=== PATIENT | female | born 2000 | race Caucasian/White ===

== ENCOUNTER 2024-02-04 07:35 | Outpatient (CLI) | payer BC, SELFPAY ==
--- NOTE | ~2024-02-04 | US_ITS ---
EXAMINATION: US pelvic complete w TV INDICATION: Pelvic and perineal pain Comparison:No prior studies for comparison. TECHNIQUE: Multiple transabdominal and endovaginal sonographic images of the pelvis performed. FINDINGS: The uterus measures 6.7 x 3.4 x 2.4 cm. The endometrial complex measures 4 mm. The right ovary measures 2.4 x 1.7 x 1.5 cm and the left ovary measures 2.3 x 2.1 x 2 cm. There are small follicles in each ovary. Normal doppler signal in both ovaries. There is trace free fluid in the pelvis. There are no abnormal masses seen on either side. IMPRESSION: 1. Unremarkable pelvic ultrasound. Reviewed, dictated and finalized at location B.
== END 2024-02-04 07:36 | disposition home or self-care (01) ==
PROVIDERS: PCP Family Medicine; Visit Provider Family Medicine
DX: R10.2 Pelvic and perineal pain (principal)
CPT/HCPCS: 76830; 76856

== ENCOUNTER 2025-01-21 11:49 | Emergency (ER) | payer BC, SELFPAY ==
[2025-01-21 11:57] VITALS: BP 122/77; PULSE 102; RESP 18; TEMP 36.4; O2SAT 99
--- NOTE | 2025-01-21 12:22 | ED_ITS ---
HPI - Ear Problem General Chief complaint: Ear Stated complaint: Right Ear Pain Time Seen by Provider: 01/21/25 12:00 Source: patient Mode of arrival: ambulatory Limitations: no limitations History of Present Illness HPI Narrative: Melissa is a 24-year-old female patient presenting to the clinic today with complaints of right ear pain x2 days. She reports she was having some itching in the right ear and went to scratch it and noticed some blood coming out of her ear. States that now she is having some ear discomfort. Feels as though there is caught in stuck in her ear. No runny nose, cough, or congestion. Denies fevers, chills, body aches. No recent swimming. No drainage coming from the ear. Related Data Allergies Allergy/AdvReac Type Severity Reaction Status Date / Time No Known Allergies Allergy Verified 01/21/25 11:55 Review of Systems Review of Systems: Pertinent positives per HPI. Patient denies any fever, chills, rash, headache, visual changes, dizziness, cough, shortness of breath, chest pain, palpitations, nausea, vomiting, diarrhea, constipation, abdominal pain, or any urinary issues. PMFSH Past Medical History Medical History Anxiety Family History Family History Mother Patient's mother is in good health Father Patient's father is in good health Social History Social History Smoking status: Never smoker Second hand tobacco smoke exposure: No Alcohol intake: never Substance use: never Substance use type: does not use Lack of Transportation: No Lack of Food: Never True Current Housing: I Have Housing Concerned About Future Housing: No Difficulty Paying Gas/Electric Bills: No Difficulty Paying for Meds: No Currently Unemployed: No Education: Associate Degree Difficulty w/ Childcare or Family Care: No Comments At the time of my signature, I reviewed and agree with the nursing past medical, surgical, social, and family history. There is no relevant family history pertinent to the patient complaint. Exam Narrative: General: Well-developed, well nourished, in no apparent distress Head: Normocephalic, atraumatic Eyes: Pupils equally round and reactive to light bilaterally, EOM intact, sclera and conjunctive clear, no discharge, lids normal Ears: TMs intact and clear, ear canals clear, no drainage, grossly hearing normal. Nose: Nares patent, no discharge, no inflammation, no sinus tenderness. Mouth: Oral pharynx without lesions or masses, good dentition, MMM. Neck: Supple, trachea midline, no enlargement of anterior or posterior cervical nodes, no thyroid masses or goiter palpable. Cardio: Regular rate and rhythm, s1 and s2 normal, no murmur appreciated. Resp: Clear to auscultation bilaterally, no rhonchi, rales, wheezing or rubs Course Course Emergency Course: Portions of this record may have been created with voice recognition software. Level of Care: Express Care Visit Vital Signs Vital signs: Vital Signs Temperature 36.4 C L 01/21/25 11:57 Pulse Rate 102 H 01/21/25 11:57 Respiratory Rate 18 01/21/25 11:57 Blood Pressure 122/77 01/21/25 11:57 Pulse Oximetry 99 01/21/25 11:57 Oxygen Delivery Room Air 01/21/25 11:57 Temperature 36.4 C L 01/21/25 11:57 Pulse Rate 102 H 01/21/25 11:57 Respiratory Rate 18 01/21/25 11:57 Blood Pressure 122/77 01/21/25 11:57 Pulse Oximetry 99 01/21/25 11:57 Oxygen Delivery Room Air 01/21/25 11:57 Vital signs reviewed Medical Decision Making MDM Narrative Medical decision making narrative: At the time of visit patient is resting comfortably on the exam table. Patient appears to be nontoxic. Complaints of right ear pain x2 days. She reports she was having some itching in the right ear and went to scratch it and noticed some blood coming out of her ear. States that now she is having some ear discomfort. Feels as though there is caught in stuck in her ear. No runny nose, cough, or congestion. Denies fevers, chills, body aches. No recent swimming. No drainage coming from the ear. On exam patient has normal ear exam, no tenderness over the eustachian tube Plan: I suspect patient has otalgia. Recommend Flonase and histamine such as Zyrtec. Prescription for Zyrtec and Flonase was sent to the pharmacy Supportive measures were discussed with the patient and they voiced understanding discharge instructions and agrees to treatment plan. Return precautions reviewed Differential Diagnosis Differential Diagnosis: Otitis media, otitis sternum eustachian tube dysfunction, cerumen impaction, upper respiratory infection, serous otitis Vital Signs Vital Signs: Vital Signs Temperature 36.4 C L 01/21/25 11:57 Pulse Rate 102 H 01/21/25 11:57 Respiratory Rate 18 01/21/25 11:57 Blood Pressure 122/77 01/21/25 11:57 Pulse Oximetry 99 01/21/25 11:57 Oxygen Delivery Room Air 01/21/25 11:57 Temperature 36.4 C L 01/21/25 11:57 Pulse Rate 102 H 01/21/25 11:57 Respiratory Rate 18 01/21/25 11:57 Blood Pressure 122/77 01/21/25 11:57 Pulse Oximetry 99 01/21/25 11:57 Oxygen Delivery Room Air 01/21/25 11:57 Discharge Plan Discharge Clinical Impression: Acute otalgia Qualifiers: Laterality: right Qualified Code(s): H92.01 - Otalgia, right ear Patient Disposition: Home Condition: Stable Instructions: Antibiotic Form, Earache (ED) Additional Instructions: Take any prescribed medications only as directed-Flonase and Zyrtec as prescribed Tylenol/motrin as needed for pain May use heating pad to alleviate pain If you get recurrent ear infections it may be warranted to follow up with ENT. Follow up with your PCP in 3-5 days if symptoms persist. Patient Language: Danish Prescriptions: New Zyrtec 10 mg capsule 10 mg PO DAILY 30 Days Qty: 30 0RF fluticasone propionate 50 mcg/actuation spray,suspension 1 spray intranasal DAILY 30 Days Qty: 16 0RF Rx Instructions: administer into each nostril No Action hydroxyzine HCl 50 mg tablet 50 mg PO TID PRN (Reason: anxiety) Qty: 270 1RF amitriptyline 10 mg tablet 10 mg PO QHS Qty: 90 1RF norethindrone ac-eth estradiol [June06/20 (21)] 1-20 mg-mcg tablet See Rx Instructions .ROUTE .COMPLEX Qty: 84 2RF Dose Instruction: TAKE 1 TABLET BY MOUTH EVERY DAY Rx Instructions: TAKE 1 TABLET BY MOUTH EVERY DAY sertraline [Zoloft] 100 mg tablet 100 mg PO DAILY Qty: 90 2RF Follow-up/Referrals: Tila Lance MD [Primary Care Provider, Family Practice] Quality NIHSS Nursing Documentation ED NIHSS nursing documentation: reviewed/agree
== END 2025-01-21 12:17 | disposition home or self-care (01) ==
PROVIDERS: Emergency Provider Nurse Practitioner Family; PCP Family Medicine
DX: H92.01 Otalgia, right ear (principal); F41.9 Anxiety disorder, unspecified
CPT/HCPCS: 99213; G0463